=== PATIENT | female | born 1955 | race Caucasian/White ===

== ENCOUNTER → 2023-10-30 13:19 | Outpatient (REF) | payer OTHER, SELFPAY | LOC: WOUND 13:19 | PROVIDERS: ATTENDING PHYSICIAN Surgery; REFERRING PHYSICIAN Family Medicine Sports Medicine | DX: L97.822 Non-pressure chronic ulcer of other part of left lower leg with fat layer exposed (principal); I87.2 Venous insufficiency (chronic) (peripheral); I73.9 Peripheral vascular disease, unspecified; Z79.01 Long term (current) use of anticoagulants; I34.0 Nonrheumatic mitral (valve) insufficiency; I10 Essential (primary) hypertension; Z86.711 Personal history of pulmonary embolism; L03.116 Cellulitis of left lower limb | CPT/HCPCS: 97597 ==

== ENCOUNTER → 2023-11-13 13:14 | Outpatient (REF) | payer OTHER, SELFPAY | LOC: WOUND 13:14 | PROVIDERS: ATTENDING PHYSICIAN Surgery; REFERRING PHYSICIAN Family Medicine Sports Medicine | DX: L03.116 Cellulitis of left lower limb (principal); L97.822 Non-pressure chronic ulcer of other part of left lower leg with fat layer exposed; I87.2 Venous insufficiency (chronic) (peripheral); I73.9 Peripheral vascular disease, unspecified; Z79.01 Long term (current) use of anticoagulants; I34.0 Nonrheumatic mitral (valve) insufficiency; I10 Essential (primary) hypertension; Z86.711 Personal history of pulmonary embolism | CPT/HCPCS: 97597 ==

== ENCOUNTER → 2023-11-26 13:22 | Outpatient (REF) | payer OTHER, SELFPAY | LOC: WOUND 13:22 | PROVIDERS: ATTENDING PHYSICIAN Surgery; FAMILY PHYSICIAN Family Medicine Sports Medicine | DX: I87.2 Venous insufficiency (chronic) (peripheral) (principal); L97.822 Non-pressure chronic ulcer of other part of left lower leg with fat layer exposed; I73.9 Peripheral vascular disease, unspecified; Z79.01 Long term (current) use of anticoagulants; I34.0 Nonrheumatic mitral (valve) insufficiency; I10 Essential (primary) hypertension; Z86.711 Personal history of pulmonary embolism; L03.116 Cellulitis of left lower limb | CPT/HCPCS: 11042; 97597 ==

== ENCOUNTER → 2023-12-03 13:30 | Outpatient (REF) | payer OTHER, SELFPAY | LOC: WOUND 13:30 | PROVIDERS: ATTENDING PHYSICIAN Surgery; FAMILY PHYSICIAN Family Medicine Sports Medicine | DX: I87.2 Venous insufficiency (chronic) (peripheral) (principal); L97.822 Non-pressure chronic ulcer of other part of left lower leg with fat layer exposed; I73.9 Peripheral vascular disease, unspecified; Z79.01 Long term (current) use of anticoagulants; I34.0 Nonrheumatic mitral (valve) insufficiency; I10 Essential (primary) hypertension; Z86.711 Personal history of pulmonary embolism | CPT/HCPCS: 97597 ==

== ENCOUNTER → 2023-12-10 13:53 | Outpatient (REF) | payer OTHER, SELFPAY | LOC: WOUND 13:53 | PROVIDERS: ATTENDING PHYSICIAN Surgery; FAMILY PHYSICIAN Family Medicine Sports Medicine | DX: I73.9 Peripheral vascular disease, unspecified (principal); L97.822 Non-pressure chronic ulcer of other part of left lower leg with fat layer exposed; I87.2 Venous insufficiency (chronic) (peripheral); Z79.01 Long term (current) use of anticoagulants; I34.0 Nonrheumatic mitral (valve) insufficiency; I10 Essential (primary) hypertension; Z86.711 Personal history of pulmonary embolism | CPT/HCPCS: 99212 ==

== ENCOUNTER 2023-12-21 11:04 | Emergency (ER) | payer OTHER, SELFPAY ==
[2023-12-21 11:07] VITALS: BP 160/78
--- NOTE | 2023-12-21 11:13 | ED.GENMED ---
History of Present Illness
General
Chief Complaint: Back Pain
Source: patient
Exam Limitations: none
Time Seen by Provider: 12/21/23 11:12
Nursing documentation reviewed up to this point in time: agreed with
Travel History
Have you had any contact with someone who has COVID-19?: No
Do you have any symptoms of coronavirus? Fever > 100 degrees, chills, cough, shortness of breath, sore throat, loss of taste or smell, muscle aches, or headache?: No
History of Present Illness
History of Present Illness:
68-year-old female with history of atrial fibrillation, PE, on Eliquis, heart murmur, HTN, GERD, remote history of right breast cancer presents stating pain across her lower back started about a month ago.
Denies fever, saddle numbness, loss of bowel or bladder control or leg weakness.
Pain radiates down both R and L buttock and thighs at times.
Although she know she is not to take NSAIDs she has taken Aleve with some relief. Also heat pad, warm baths help, Tylenol does not help.
Denies recollection of over use or injury but she just started a job 6 months ago at [employer], hanging it up, lots of bending, twisting and reaching.
Past History
Past History
ED Past Medical History: Arrthythmia, Cancer (breast), GERD, HTN and Other (breast CA, lumpectomy >20 yrs go.)
ED Past Surgical History: Orthopedic
Social History
Tobacco: Former smoker
Alcohol: Former
Drug: None
Personal:
Living: with family
Employment: Employed
Review of Systems
Review of Systems
Allergies reviewed?: Yes
All Other Systems: ROS reviewed and negative except as documented in HPI and ROS
Constitutional: Denies fever
Respiratory: Denies trouble breathing
Cardiac: Denies chest pain
ABD/GI: Denies abdominal pain
: Denies dysuria, frequency, incontinence, difficulty voiding or urgency
Musculoskeletal: Reports back pain; Denies edema
Skin: Reports no symptoms
Neurological: Reports no symptoms
Phy Exam
Physical Exam
Physical Exam:
GENERAL: No acute distress. A&Ox3.
CONSTITUTIONAL: Afebrile.
RESPIRATORY: Regular respirations, nonlabored, lungs clear.
CARDIOVASCULAR: Regular rate and rhythm, no murmurs, no rubs.
GI: Soft, nontender, normal BS
MUSCULOSKELETAL: No spinal bony tenderness, ambulates well with steady gait. Neg bilat SLR. Full ROM of LEs. Moves with ease. Well perfused.
SKIN: Warm, dry, pink
PSYCH: Normal mood and affect. Well kept, interactive and appropriate
NEUROLOGIC: Awake, alert and oriented. No focal neurological deficits. Strength 5/5 throughout.
Course
Orders/Labs/Results
Orders:
Orders
12/21/23 11:37
Lumbar Spine, 2 or 3 View [CR Lumbar Spine 2 Or 3 Views] Urgent
Comment:
Reason For Exam: bilateral sciatica, pain across lower back
12/21/23 11:38
Dexamethasone [Decadron] 10 mg PO NOW STA
Vital Signs
Initial and Last Documented VS:
Initial Vital Signs
Temp Pulse Resp BP Pulse Ox
98.6 F 66 18 160/78 97
12/21/23 11:07 12/21/23 11:07 12/21/23 11:07 12/21/23 11:07 12/21/23 11:07
Last Documented Vital Signs
Temp Pulse Resp BP Pulse Ox
98.6 F 66 18 160/78 97
12/21/23 11:07 12/21/23 11:07 12/21/23 11:07 12/21/23 11:07 12/21/23 11:07
MDM/Problems Addressed
Differential Diagnosis Includes:
low back strain, sciatica, DJD/arthritis spine
MDM/Problems Addressed:
68-year-old female with history of atrial fibrillation, PE, on Eliquis, heart murmur, HTN, GERD, remote history of right breast cancer presents stating pain across her lower back started about a month ago.
Denies fever, saddle numbness, loss of bowel or bladder control or leg weakness.
Pain radiates down both R and L buttock and thighs at times.
Although she knows she is not to take NSAIDs she has taken Aleve with some relief. Also heat pad, warm baths help, Tylenol does not help.
Denies over use or injury but she just started a job 6 months ago at [employer], hanging it up, lots of bending, twisting and reaching.
No neurological deficits
No cauda equina
LS-spine x-ray: IMPRESSION:
1).There is bilateral L5 spondylolysis with 3.5 cm grade 3 spondylolisthesis of L5 on S1
2). There is severe disc space narrowing indicating degenerative disc disease at L5-S1
3). There is moderate disc space narrowing with subchondral sclerosis indicating degenerative disc disease at L1-2 and mild disc space narrowing with degenerative spurring at T12-L1
Patient ambulated out with normal gait upon discharge
Referred to orthopedic for follow-up
Rx for short burst of prednisone sent to her pharmacy
*Critical Care Note
Total Time (30-74mins, 75-104mins- exclusive of procedures): Not Applicable
ED Attending Note
-
Portions of this chart may have been created with voice recognition software.� Occasional wrong word or��sound alike� substitutions may have occurred due to the inherent limitations of voice recognition software.
Discharge Plan
Departure
Patient Disposition: Home (Routine Discharge)
Date of Disposition: 12/21/23
Time of Disposition: 12:39
Patient with high blood pressure during this ER visit?: Yes
Condition: Good
Discharge Problem:
Low back pain, Sciatica
Instructions: Low Back Pain (DC), Sciatica (DC), Back Exercises, Back Precautions
Prescriptions:
New
prednisone 20 mg tablet
40 mg PO DAILY Qty: 8 0RF
No Action
atenolol 50 MG tablet
50 mg PO BID
acetaminophen [Tylenol Extra Strength] 500 mg Tablet
1,000 mg PO Q6H PRN (Reason: mild pain)
naproxen sodium [Aleve] 220 mg Tablet
220 mg PO Q8H PRN (Reason: mild pain)
valsartan 160 mg Tablet
160 mg PO DAILY
Eliquis 5 MG tablet
5 mg PO BID
triamcinolone acetonide 0.1 % Cream
1 applic topical BID Qty: 454 0RF
white petrolatum [Hydrophor] 42 % Ointment
1 applic topical DAILY Qty: 454 0RF
clotrimazole-betamethasone 1-0.05 % Cream
1 applic topical BID Qty: 45 0RF
cephalexin 500 mg capsule
500 mg PO QID 6 Days Qty: 24 0RF
Referrals:
Malika Oh DO [Family Provider] -
Leo Bruce MD [Active] - Next open appointment
Activity Restrictions/Additional Instructions:
As we discussed, do not take NSAIDs (Ibuprofen, Advil, Motrin, Aleve) while you are on Eliquis.
You were given Decadron 10 mg (a steroid) here today.
I sent a prescription to your pharmacy for Prednisone to take 40 mg daily for the next 4 days. Start it tomorrow.
Call and make appointment with the orthopedic doctor
You can do exercises I provided for low back pain. You may also Google back exercises.
Use proper body mechanics at work as the type of work you do may aggravate your back pain/sciatica
Interventions
Interventions:
*Risk Screen - Suicide Last Done: 12/21/23 11:07
*General Assessment Last Done: 12/21/23 11:07
*Neglect/Abuse Screening Last Done: 12/21/23 11:07
*ED COVID-19 Vaccine History Last Done: 12/21/23 11:07
*Nursing Disposition Last Done: 12/21/23 12:48
ED-Musculoskeletal Assessment Last Done: 12/21/23 11:44
Discharge Date and Time
Discharge Date/Time: 12/21/23 12:49
[2023-12-21] MEDS: DECADRON 10 MG PO (11:42)
== END 2023-12-21 12:49 | disposition home or self-care (01) ==
LOC: EMR 11:04
PROVIDERS: EMERGENCY PHYSICIAN Student in an Organized Health Care Education/Training Program; FAMILY PHYSICIAN Family Medicine
DX: M54.40 Lumbago with sciatica, unspecified side (principal); I10 Essential (primary) hypertension; Z87.891 Personal history of nicotine dependence; I48.91 Unspecified atrial fibrillation; K21.9 Gastro-esophageal reflux disease without esophagitis; Z79.01 Long term (current) use of anticoagulants
CPT/HCPCS: 99283; 72100

== ENCOUNTER → 2023-12-24 14:58 | Outpatient (REF) | payer OTHER, SELFPAY | LOC: WOUND 14:58 | PROVIDERS: ATTENDING PHYSICIAN Surgery; FAMILY PHYSICIAN Family Medicine Sports Medicine | DX: L97.822 Non-pressure chronic ulcer of other part of left lower leg with fat layer exposed (principal); I87.2 Venous insufficiency (chronic) (peripheral); I73.9 Peripheral vascular disease, unspecified; I34.0 Nonrheumatic mitral (valve) insufficiency; I10 Essential (primary) hypertension; Z86.711 Personal history of pulmonary embolism; Z79.01 Long term (current) use of anticoagulants | CPT/HCPCS: 11042 ==

== ENCOUNTER → 2024-01-01 14:17 | Outpatient (REF) | payer OTHER, SELFPAY | LOC: WOUND 14:17 | PROVIDERS: ATTENDING PHYSICIAN Surgery; FAMILY PHYSICIAN Family Medicine | DX: I87.2 Venous insufficiency (chronic) (peripheral) (principal); L97.822 Non-pressure chronic ulcer of other part of left lower leg with fat layer exposed; I73.9 Peripheral vascular disease, unspecified; I47.10 Supraventricular tachycardia, unspecified; I34.0 Nonrheumatic mitral (valve) insufficiency; I10 Essential (primary) hypertension; Z79.01 Long term (current) use of anticoagulants; Z86.711 Personal history of pulmonary embolism | CPT/HCPCS: 99212 ==

== ENCOUNTER → 2024-01-14 14:53 | Outpatient (REF) | payer OTHER, SELFPAY | LOC: WOUND 14:53 | PROVIDERS: ATTENDING PHYSICIAN Surgery; FAMILY PHYSICIAN Family Medicine | DX: L97.822 Non-pressure chronic ulcer of other part of left lower leg with fat layer exposed (principal); I87.2 Venous insufficiency (chronic) (peripheral); I73.9 Peripheral vascular disease, unspecified; I47.10 Supraventricular tachycardia, unspecified; I34.0 Nonrheumatic mitral (valve) insufficiency; I10 Essential (primary) hypertension; Z86.711 Personal history of pulmonary embolism; Z79.01 Long term (current) use of anticoagulants | CPT/HCPCS: 11042 ==

== ENCOUNTER → 2024-01-22 14:12 | Outpatient (REF) | payer OTHER, SELFPAY | LOC: WOUND 14:12 | PROVIDERS: ATTENDING PHYSICIAN Surgery; FAMILY PHYSICIAN Family Medicine | DX: L97.822 Non-pressure chronic ulcer of other part of left lower leg with fat layer exposed (principal); I87.2 Venous insufficiency (chronic) (peripheral); I73.9 Peripheral vascular disease, unspecified; I47.10 Supraventricular tachycardia, unspecified; I34.0 Nonrheumatic mitral (valve) insufficiency; I10 Essential (primary) hypertension; Z86.711 Personal history of pulmonary embolism; Z79.01 Long term (current) use of anticoagulants | CPT/HCPCS: 11042 ==

== ENCOUNTER → 2024-01-26 09:27 | Outpatient (REF) | payer OTHER, SELFPAY | LOC: HWEVLT 09:27 | PROVIDERS: ATTENDING PHYSICIAN Radiology Vascular & Interventional Radiology | DX: I83.892 Varicose veins of left lower extremity with other complications (principal) | CPT/HCPCS: 36478; C1769 ==

== ENCOUNTER → 2024-01-29 14:58 | Outpatient (REF) | payer OTHER, SELFPAY | LOC: WOUND 14:58 | PROVIDERS: ATTENDING PHYSICIAN Surgery; FAMILY PHYSICIAN Family Medicine | DX: L97.822 Non-pressure chronic ulcer of other part of left lower leg with fat layer exposed (principal); I87.2 Venous insufficiency (chronic) (peripheral); I34.0 Nonrheumatic mitral (valve) insufficiency; I73.9 Peripheral vascular disease, unspecified; I10 Essential (primary) hypertension; Z86.711 Personal history of pulmonary embolism | CPT/HCPCS: 11042 ==

== ENCOUNTER → 2024-02-04 10:00 | Outpatient (REF) | payer OTHER, SELFPAY | LOC: HWEVLT 10:00 | PROVIDERS: ATTENDING PHYSICIAN Radiology Diagnostic Radiology | DX: I83.892 Varicose veins of left lower extremity with other complications (principal) | CPT/HCPCS: 93971 ==

== ENCOUNTER → 2024-02-05 09:41 | Outpatient (REF) | payer OTHER, SELFPAY | LOC: WOUND 09:41 | PROVIDERS: ATTENDING PHYSICIAN Surgery; FAMILY PHYSICIAN Family Medicine | DX: L97.822 Non-pressure chronic ulcer of other part of left lower leg with fat layer exposed (principal); I87.2 Venous insufficiency (chronic) (peripheral); I73.9 Peripheral vascular disease, unspecified; I34.0 Nonrheumatic mitral (valve) insufficiency; I10 Essential (primary) hypertension; Z86.711 Personal history of pulmonary embolism; Z79.01 Long term (current) use of anticoagulants | CPT/HCPCS: 11042 ==

== ENCOUNTER → 2024-02-12 14:47 | Outpatient (REF) | payer OTHER, SELFPAY | LOC: WOUND 14:47 | PROVIDERS: ATTENDING PHYSICIAN Surgery; FAMILY PHYSICIAN Family Medicine | DX: L97.822 Non-pressure chronic ulcer of other part of left lower leg with fat layer exposed (principal); I87.2 Venous insufficiency (chronic) (peripheral); I73.9 Peripheral vascular disease, unspecified; I47.10 Supraventricular tachycardia, unspecified; I34.0 Nonrheumatic mitral (valve) insufficiency; I10 Essential (primary) hypertension; Z79.01 Long term (current) use of anticoagulants; Z86.711 Personal history of pulmonary embolism | CPT/HCPCS: 11042 ==

== ENCOUNTER → 2024-02-23 14:59 | Outpatient (REF) | payer OTHER, SELFPAY | LOC: WOUND 14:59 | PROVIDERS: ATTENDING PHYSICIAN Surgery; FAMILY PHYSICIAN Family Medicine | DX: L97.822 Non-pressure chronic ulcer of other part of left lower leg with fat layer exposed (principal); I87.2 Venous insufficiency (chronic) (peripheral); I73.9 Peripheral vascular disease, unspecified; I47.10 Supraventricular tachycardia, unspecified; I34.0 Nonrheumatic mitral (valve) insufficiency; I10 Essential (primary) hypertension; Z86.711 Personal history of pulmonary embolism; Z79.01 Long term (current) use of anticoagulants | CPT/HCPCS: 99213 ==

== ENCOUNTER → 2024-02-25 10:20 | Outpatient (REF) | payer OTHER, SELFPAY | LOC: RCS 10:20 | PROVIDERS: ATTENDING PHYSICIAN Internal Medicine Cardiovascular Disease; FAMILY PHYSICIAN Family Medicine | DX: I47.19 Other supraventricular tachycardia (principal); I34.0 Nonrheumatic mitral (valve) insufficiency | CPT/HCPCS: 93306 ==

== ENCOUNTER → 2024-03-02 14:33 | Outpatient (REF) | payer OTHER, SELFPAY | LOC: MRI 3T 14:33 | PROVIDERS: ATTENDING PHYSICIAN Physician Assistant; FAMILY PHYSICIAN Family Medicine | DX: M54.16 Radiculopathy, lumbar region (principal) | CPT/HCPCS: 72148 ==

== ENCOUNTER → 2024-03-11 14:40 | Outpatient (REF) | payer OTHER, SELFPAY | LOC: WOUND 14:40 | PROVIDERS: ATTENDING PHYSICIAN Surgery; FAMILY PHYSICIAN Family Medicine | DX: L97.822 Non-pressure chronic ulcer of other part of left lower leg with fat layer exposed (principal); I87.2 Venous insufficiency (chronic) (peripheral); I73.9 Peripheral vascular disease, unspecified; I47.10 Supraventricular tachycardia, unspecified; I34.0 Nonrheumatic mitral (valve) insufficiency; I10 Essential (primary) hypertension; Z86.711 Personal history of pulmonary embolism; Z79.01 Long term (current) use of anticoagulants | CPT/HCPCS: 99213 ==

== ENCOUNTER → 2024-04-01 14:54 | Outpatient (REF) | payer OTHER, SELFPAY | LOC: WOUND 14:54 | PROVIDERS: ATTENDING PHYSICIAN Surgery; FAMILY PHYSICIAN Family Medicine | DX: L97.822 Non-pressure chronic ulcer of other part of left lower leg with fat layer exposed (principal); I87.2 Venous insufficiency (chronic) (peripheral); I73.9 Peripheral vascular disease, unspecified | CPT/HCPCS: 99213 ==

== ENCOUNTER → 2024-04-22 13:44 | Outpatient (REF) | payer OTHER, SELFPAY | LOC: WOUND 13:44 | PROVIDERS: ATTENDING PHYSICIAN Surgery; FAMILY PHYSICIAN Family Medicine | DX: L97.822 Non-pressure chronic ulcer of other part of left lower leg with fat layer exposed (principal); I87.2 Venous insufficiency (chronic) (peripheral); I73.9 Peripheral vascular disease, unspecified | CPT/HCPCS: 11042 ==

== ENCOUNTER → 2024-04-27 13:17 | Outpatient (REF) | payer OTHER, SELFPAY | LOC: WOUND 13:17 | PROVIDERS: ATTENDING PHYSICIAN Surgery | DX: L97.822 Non-pressure chronic ulcer of other part of left lower leg with fat layer exposed (principal); I87.2 Venous insufficiency (chronic) (peripheral); I73.9 Peripheral vascular disease, unspecified; I47.10 Supraventricular tachycardia, unspecified; I34.0 Nonrheumatic mitral (valve) insufficiency; I10 Essential (primary) hypertension; Z86.711 Personal history of pulmonary embolism; Z79.01 Long term (current) use of anticoagulants | CPT/HCPCS: 29580 ==

== ENCOUNTER → 2024-05-05 14:38 | Outpatient (REF) | payer OTHER, SELFPAY | LOC: WOUND 14:38 | PROVIDERS: ATTENDING PHYSICIAN Surgery; FAMILY PHYSICIAN Family Medicine | DX: L97.822 Non-pressure chronic ulcer of other part of left lower leg with fat layer exposed (principal); I87.2 Venous insufficiency (chronic) (peripheral); I73.9 Peripheral vascular disease, unspecified | CPT/HCPCS: 97597 ==

== ENCOUNTER → 2024-05-12 13:15 | Outpatient (REF) | payer OTHER, SELFPAY | LOC: RAD 13:15 | PROVIDERS: ATTENDING PHYSICIAN Registered Nurse; PRIMARYCARE PHYSICIAN Family Medicine | DX: I87.2 Venous insufficiency (chronic) (peripheral) (principal); I72.4 Aneurysm of artery of lower extremity | CPT/HCPCS: 93971 ==

== ENCOUNTER → 2024-05-12 13:43 | Outpatient (REF) | payer OTHER, SELFPAY | LOC: WOUND 13:43 | PROVIDERS: ATTENDING PHYSICIAN Surgery; FAMILY PHYSICIAN Family Medicine | DX: L97.822 Non-pressure chronic ulcer of other part of left lower leg with fat layer exposed (principal); I73.9 Peripheral vascular disease, unspecified; Z79.01 Long term (current) use of anticoagulants; I47.10 Supraventricular tachycardia, unspecified; I34.0 Nonrheumatic mitral (valve) insufficiency; I10 Essential (primary) hypertension; Z86.711 Personal history of pulmonary embolism | CPT/HCPCS: 97597 ==

== ENCOUNTER → 2024-05-19 14:50 | Outpatient (REF) | payer OTHER, SELFPAY | LOC: WOUND 14:50 | PROVIDERS: ATTENDING PHYSICIAN Surgery; FAMILY PHYSICIAN Family Medicine | DX: L97.822 Non-pressure chronic ulcer of other part of left lower leg with fat layer exposed (principal); I87.2 Venous insufficiency (chronic) (peripheral); I73.9 Peripheral vascular disease, unspecified; I47.10 Supraventricular tachycardia, unspecified; I34.0 Nonrheumatic mitral (valve) insufficiency; I10 Essential (primary) hypertension; Z86.711 Personal history of pulmonary embolism; Z79.01 Long term (current) use of anticoagulants | CPT/HCPCS: 11042 ==

== ENCOUNTER → 2024-05-26 14:29 | Outpatient (REF) | payer OTHER, SELFPAY | LOC: WOUND 14:29 | PROVIDERS: ATTENDING PHYSICIAN Surgery; FAMILY PHYSICIAN Family Medicine | DX: L97.822 Non-pressure chronic ulcer of other part of left lower leg with fat layer exposed (principal); I87.2 Venous insufficiency (chronic) (peripheral); I73.9 Peripheral vascular disease, unspecified; I34.0 Nonrheumatic mitral (valve) insufficiency; I10 Essential (primary) hypertension; Z86.711 Personal history of pulmonary embolism | CPT/HCPCS: 29581; 99213 ==

== ENCOUNTER → 2024-06-03 14:40 | Outpatient (REF) | payer OTHER, SELFPAY | LOC: WOUND 14:40 | PROVIDERS: ATTENDING PHYSICIAN Surgery; FAMILY PHYSICIAN Family Medicine | DX: L97.822 Non-pressure chronic ulcer of other part of left lower leg with fat layer exposed (principal); I87.2 Venous insufficiency (chronic) (peripheral); I73.9 Peripheral vascular disease, unspecified; I34.0 Nonrheumatic mitral (valve) insufficiency; I10 Essential (primary) hypertension; Z86.711 Personal history of pulmonary embolism; Z79.01 Long term (current) use of anticoagulants | CPT/HCPCS: 99213 ==

== ENCOUNTER 2024-08-19 12:30 | Emergency (ER) | payer OTHER, MEDICARE, SELFPAY ==
[2024-08-19 12:32] VITALS: BP 160/102
[2024-08-19 13:00] VITALS: BP 154/86
--- NOTE | 2024-08-19 13:37 | ED.GENMED ---
History of Present Illness
General
Chief Complaint: Back Pain
Time Seen by Provider: 08/19/24 13:22
History of Present Illness
History of Present Illness:
68-year-old female presents the emergency department for evaluation of right-sided low back pain developing after carrying heavy groceries. She states this has been an ongoing low back injury from a work related injury in December of this year, has
done outpatient physical therapy as well as multiple back injections without sustained relief. States she lifted a heavy turkey when the pain began. Pain radiates down the right leg. She has taken Tylenol and a muscle relaxant without relief. No
saddle anesthesias or difficulty urinating
Past History
Past History
ED Past Medical History: Arrthythmia, Cancer (breast), GERD, HTN and Other (breast CA, lumpectomy >20 yrs go.)
ED Past Surgical History: Orthopedic
Social History
Tobacco: Former smoker
Alcohol: Former
Drug: None
Personal:
Living: with family
Employment: Employed
Review of Systems
Review of Systems
Allergies reviewed?: Yes
All Other Systems: ROS reviewed and negative except as documented in HPI and ROS
Phy Exam
Physical Exam
Physical Exam:
GEN: Well appearing, NAD, WDWN
HEENT: Oral mucosa moist, no scleral icterus
Cardiac: Regular rate
Lung: No respiratory distress, no tachypnea
MSK: No gross deformity or injuries. No midline lumbar spine tenderness or paraspinous muscle tenderness. Normal right hip range of motion with no pain. Positive straight leg raise at 45 degrees
Skin: Good color, no pallor or jaundice, no rashes
Neuro: AO x3, moves all extremities freely
Psych: Calm, cooperative
Course
Vital Signs
Initial and Last Documented VS:
Initial Vital Signs
Temp Pulse Resp BP Pulse Ox
98.1 F 100 18 160/102 98
08/19/24 12:32 08/19/24 12:32 08/19/24 12:32 08/19/24 12:32 08/19/24 12:32
Last Documented Vital Signs
Temp Pulse Resp BP Pulse Ox
98.1 F 84 16 154/86 98
08/19/24 12:32 08/19/24 13:00 08/19/24 13:00 08/19/24 13:00 08/19/24 13:00
MDM/Problems Addressed
MDM/Problems Addressed:
Patient is describing lumbar radiculopathy from a prior injury several months ago. She has no red flag symptoms such as saddle anesthesias that would warrant urgent imaging. As she is on anticoagulants we cannot use NSAIDs thus we will prescribe a
course of corticosteroids and recommend she follow-up with her pain and spine team as an outpatient
*Critical Care Note
Total Time (30-74mins, 75-104mins- exclusive of procedures): Not Applicable
ED Attending Note
-
Portions of this chart may have been created with voice recognition software.� Occasional wrong word or��sound alike� substitutions may have occurred due to the inherent limitations of voice recognition software.
Discharge Plan
Departure
Patient Disposition: Home (Routine Discharge)
Date of Disposition: 08/19/24
Time of Disposition: 13:43
Patient with high blood pressure during this ER visit?: No
Discharge Problem:
Lumbar radiculopathy
Instructions: Radiculopathy (DC)
Prescriptions:
New
prednisone 10 mg tablet
10 mg PO DIRECTED Qty: 43 0RF
Rx Instructions:
Once daily as follows: 60, 60, 50, 50, 40, 40, 30, 30, 20, 20, 10, 10, 5, 5
No Action
atenolol 50 MG tablet
50 mg PO BID
acetaminophen [Tylenol Extra Strength] 500 mg Tablet
1,000 mg PO Q6H PRN (Reason: mild pain)
naproxen sodium [Aleve] 220 mg Tablet
220 mg PO Q8H PRN (Reason: mild pain)
valsartan 160 mg Tablet
160 mg PO DAILY
Eliquis 5 MG tablet
5 mg PO BID
triamcinolone acetonide 0.1 % Cream
1 applic topical BID Qty: 454 0RF
white petrolatum [Hydrophor] 42 % Ointment
1 applic topical DAILY Qty: 454 0RF
clotrimazole-betamethasone 1-0.05 % Cream
1 applic topical BID Qty: 45 0RF
cephalexin 500 mg capsule
500 mg PO QID 6 Days Qty: 24 0RF
prednisone 20 mg tablet
40 mg PO DAILY Qty: 8 0RF
Activity Restrictions/Additional Instructions:
Follow up with your early childhood specialist at [facility]. For your chronic shoulder pain, consider seeing Dr Tipton at [facility]
Interventions
Interventions:
*Risk Screen - Suicide Last Done: 08/19/24 12:32
*General Assessment Last Done: 08/19/24 12:32
*Neglect/Abuse Screening Last Done: 08/19/24 12:32
ED- Fall Risk Assessment Last Done: 08/19/24 12:37
*ED COVID-19 Vaccine History Last Done: 08/19/24 12:32
*Nursing Disposition Last Done: 08/19/24 13:50
ED-Musculoskeletal Assessment Last Done: 08/19/24 12:37
Discharge Date and Time
Discharge Date/Time: 08/19/24 13:51
Print Language: TANZANIAN
== END 2024-08-19 13:51 | disposition home or self-care (01) ==
LOC: EMR 12:30
PROVIDERS: EMERGENCY PHYSICIAN Emergency Medicine; FAMILY PHYSICIAN Family Medicine
DX: M54.16 Radiculopathy, lumbar region (principal); Z87.891 Personal history of nicotine dependence
CPT/HCPCS: 99283

== ENCOUNTER 2025-08-06 10:39 | Emergency (ER) | payer OTHER, SELFPAY ==
[2025-08-06 10:55] VITALS: BP 160/82
[2025-08-06 11:09] LABS: Hematocrit 40.0 % (37.0-47.0); Hemoglobin 13.5 g/dL (12.0-16.0); Mean Corp Hgb Conc. 33.8 g/dL (33.0-37.0); Mean Corpuscular Volume 86.4 fL (81.0-99.0); Nucleated Red Blood Cells % 0 %; Platelet Count 245 10^3/uL (130-400); Red Cell Dist. Width 12.6 % (11.5-14.5)
[2025-08-06 11:29] LABS: ALT (SGPT) 20 U/L (0-35); AST (SGOT) 20 U/L (14-36); Albumin 4.4 g/dl (3.5-5.0); Alkaline Phosphatase 66 U/L (38-126); Blood Urea Nitrogen 16 mg/dl (7-17); Calcium 9.0 mg/dl (8.4-10.2); Carbon Dioxide 27 mmol/L (22-30); Chloride 102 mmol/L (98-107); Glucose 154 mg/dl (70-99); Lipase 115 U/L (23-300); Potassium 4.7 mmol/L (3.5-5.1); Sodium 134 mmol/L (135-145); Total Protein 7.5 g/dl (6.3-8.2); eGFR > 60.00
[2025-08-06 11:40] LABS: Troponin I < 0.012 ng/ml
--- NOTE | 2025-08-06 11:59 | ED.GENMED ---
History of Present Illness
General
Chief Complaint: Back Pain
Source: patient
Exam Limitations: none
Time Seen by Provider: 08/06/25 11:50
History of Present Illness
History of Present Illness:
69-year-old female presents with pain to the right side of the back that radiates around to the chest starting yesterday. No known injury. She denies shortness of breath. The pain is not pleuritic. She has not tried any medications for this
pain. She denies a rash. No recent travel. No other complaint.
Past History
Past History
ED Past Medical History: Arrthythmia, Cancer (breast), GERD, HTN and Other (breast CA, lumpectomy >20 yrs go.)
ED Past Surgical History: Orthopedic
Social History
Tobacco: Former smoker
Alcohol: Former
Drug: None
Personal:
Living: with family
Employment: Employed
Phy Exam
Physical Exam
Physical Exam:
General: Well-appearing female no acute respiratory distress
HEENT: Normal cephalic atraumatic
Heart: Regular rate and rhythm
Lungs: Clear no wheeze
Musculoskeletal exam: There is tenderness over the right posterior lateral chest wall without overlying rash step-off or deformity
Abdomen is soft and nontender
Extremities: No cyanosis or edema
Course
Orders/Labs/Results
Orders:
Orders
08/06/25 10:54
Electrocardiogram (*1) Urgent
Reason for Study: Chest Pain
08/06/25 10:55
EKG- Treatment ONCE
08/06/25 11:03
Complete Blood Count/With Diff Urgent
Comprehensive Metabolic Panel Urgent
Lipase Urgent
Troponin I Urgent
08/06/25 12:00
CR Ribs-right 3 Vw W/pa Chest* Urgent
Reason For Exam: pain right side
Abnormal Lab Results
08/06/25
11:03
Absolute Neuts (auto) 8.6 H 10^3/uL
(1.4-6.5)
Absolute Lymphs (auto) 1.1 L 10^3/uL
(1.2-3.4)
Absolute Monos (auto) 0.7 H 10^3/uL
(0.1-0.6)
Neutrophils % 82.1 H %
(42.2-75.2)
Lymphocytes % 10.6 L %
(20.5-51.1)
Sodium 134 L mmol/L
(135-145)
Glucose 154 H mg/dl
(70-99)
08/06/25 11:03
08/06/25 11:03
Vital Signs
Initial and Last Documented VS:
Initial Vital Signs
Temp Pulse Resp BP Pulse Ox
98.7 F 84 18 160/82 98
08/06/25 10:55 08/06/25 10:55 08/06/25 10:55 08/06/25 10:55 08/06/25 10:55
Last Documented Vital Signs
Temp Pulse Resp BP Pulse Ox
98.7 F 84 18 160/82 98
08/06/25 10:55 08/06/25 10:55 08/06/25 10:55 08/06/25 10:55 08/06/25 12:00
MDM/Problems Addressed
Differential Diagnosis Includes:
Right chest wall pain not pleuritic not hypoxic not tachycardic not short of breath. No PE risk factors. Suspect musculoskeletal type of pain perhaps radiculopathy versus muscle strain. There is no rash to suggest shingles. Will obtain rib
series to evaluate for rib fracture. Workup done through triage including EKG which showed sinus rhythm without ischemic changes and undetectable troponin. Lipase is normal
*Pulse Oximetry
SaO2: 98
Oxygen Mode of Delivery: Room air
Patient hypoxic: no
*Critical Care Note
Total Time (30-74mins, 75-104mins- exclusive of procedures): Not Applicable
Update Note
Update Note:
X-rays of the ribs are negative for acute finding. I suspect either radicular pain or muscular pain. Will prescribe anti-inflammatories have her follow-up with family doctor. No indication for admission. Stable for discharge
Patient is on Eliquis not missing any doses do not suspect PE
ED Attending Note
-
Portions of this chart may have been created with voice recognition software.� Occasional wrong word or��sound alike� substitutions may have occurred due to the inherent limitations of voice recognition software.
Discharge Plan
Departure
Patient Disposition: Home (Routine Discharge)
Date of Disposition: 08/06/25
Time of Disposition: 13:38
Patient with high blood pressure during this ER visit?: No
Discharge Problem:
Chest wall pain
Instructions: Upper Back Pain (DC)
Prescriptions:
New
prednisone 10 mg Tablet
See Rx Instructions .ROUTE .COMPLEX Qty: 30 0RF
Rx Instructions:
Take By Mouth:
40 mg daily x3 days, 30 mg daily x3 days,
20 mg daily x3 days, 10 mg daily x3 days.
No Action
atenolol 50 MG tablet
50 mg PO BID
acetaminophen [Tylenol Extra Strength] 500 mg Tablet
1,000 mg PO Q6H PRN (Reason: mild pain)
naproxen sodium [Aleve] 220 mg Tablet
220 mg PO Q8H PRN (Reason: mild pain)
valsartan 160 mg Tablet
160 mg PO DAILY
Eliquis 5 MG tablet
5 mg PO BID
triamcinolone acetonide 0.1 % Cream
1 applic topical BID Qty: 454 0RF
white petrolatum [Hydrophor] 42 % Ointment
1 applic topical DAILY Qty: 454 0RF
clotrimazole-betamethasone 1-0.05 % Cream
1 applic topical BID Qty: 45 0RF
cephalexin 500 mg capsule
500 mg PO QID 6 Days Qty: 24 0RF
prednisone 20 mg tablet
40 mg PO DAILY Qty: 8 0RF
prednisone 10 mg tablet
10 mg PO DIRECTED Qty: 43 0RF
Rx Instructions:
Once daily as follows: 60, 60, 50, 50, 40, 40, 30, 30, 20, 20, 10, 10, 5, 5
Referrals:
Malika Oh DO [Family Provider, Family Practice]
Activity Restrictions/Additional Instructions:
Use prednisone as directed. Use Tylenol if needed for pain. Return if worse otherwise follow-up with your doctor
Interventions
Interventions:
*Risk Screen - Suicide Last Done: 08/06/25 10:55
*General Assessment Last Done: 08/06/25 10:55
*Neglect/Abuse Screening Last Done: 08/06/25 10:55
*ED- Fall Risk Assessment Last Done: 08/06/25 10:55
*ED COVID-19 Vaccine History Last Done: 08/06/25 10:55
*ED Influenza Vaccine History Last Done: 08/06/25 10:55
Discharge Date and Time
Print Language: CANADIAN
[2025-08-06 14:30] VITALS: BP 153/73
== END 2025-08-06 14:30 | disposition home or self-care (01) ==
LOC: EMR 10:39
PROVIDERS: EMERGENCY PHYSICIAN Student in an Organized Health Care Education/Training Program; FAMILY PHYSICIAN Family Medicine
DX: R07.89 Other chest pain (principal); I10 Essential (primary) hypertension; K21.9 Gastro-esophageal reflux disease without esophagitis; Z85.3 Personal history of malignant neoplasm of breast; Z87.891 Personal history of nicotine dependence
CPT/HCPCS: 99284; 71101; 80053; 83690; 84484; 85025; 93005